=== PATIENT | male | born 1975 | race Caucasian/White ===

== ENCOUNTER 2018-07-24 10:13 | Emergency (ER) | payer SELFPAY ==
[2018-07-24 11:24] VITALS: BP 120/75
--- NOTE | 2018-07-24 11:47 | UC ---
Shoulder Pain HPI - HPI Summary HPI Summary: patient has had shoulder pain for the past few months, the past 2 weeks it has become more severe, swelling along the shoulder and collar bone and the supraclavicular space. hard to let the arm hang, does not remember any trauma to shoulder - History of Current Complaint Chief Complaint: UCUpperExtremity Stated Complaint: LEFT SHOULDER INJURY Time Seen by Provider: 07/24/18 11:33 Hx Obtained From: Patient Onset/Duration: Gradual Onset, Still Present, Worse Since - 2wks Timing: Constant Severity Currently: Severe Pain Intensity: 7 Character: Throbbing, Spasmodic, Stiffness Associated Signs And Symptoms: Positive: Swelling, Weakness - Allergies/Home Medications Allergies/Adverse Reactions: Allergies Allergy/AdvReac Type Severity Reaction Status Date / Time atropine Allergy See Comment Verified 07/24/18 11:25 Home Medications: Home Medications Ibuprofen TAB* [Motrin TAB* 800 MG] 800 mg PO Q6H 07/24/18 [History Confirmed ] PMH/Surg Hx/FS Hx/Imm Hx Previously Healthy: Yes - Surgical History Surgical History: Yes Surgery Procedure, Year, and Place: eye surgery as a child - Family History Known Family History: Positive: Hypertension - Social History Alcohol Use: Weekly Substance Use Type: None Smoking Status (MU): Heavy Every Day Tobacco Smoker Amount Used/How Often: 1 ppd Length of Time of Smoking/Using Tobacco: 25 Have You Smoked in the Last Year: Yes Review of Systems All Other Systems Reviewed And Are Negative: Yes Constitutional: Positive: Negative Skin: Positive: Negative Eyes: Positive: Negative ENT: Positive: Negative Respiratory: Positive: Negative Cardiovascular: Positive: Negative Gastrointestinal: Positive: Negative Genitourinary: Positive: Negative Motor: Positive: Negative Neurovascular: Positive: Negative Musculoskeletal: Positive: Arthralgia, Decreased ROM, Edema, Myalgia Neurological: Positive: Negative Psychological: Positive: Negative Is Patient Immunocompromised?: No Physical Exam Triage Information Reviewed: Yes Appearance: Well-Appearing, Well-Nourished, Pain Distress Vital Signs: Initial Vital Signs Temp 98.6 F 07/24/18 11:12 Pulse 56 07/24/18 11:12 Resp 18 07/24/18 11:12 BP 120/75 07/24/18 11:12 Pulse Ox 98 07/24/18 11:12 Vital Signs Reviewed: Yes Eye Exam: Normal ENT Exam: Normal Dental Exam: Normal Neck exam: Normal Respiratory Exam: Normal Cardiovascular Exam: Normal Abdominal Exam: Normal Bowel Sounds: Positive: Present Musculoskeletal: Positive: Strength Intact, ROM Limited @ - in flx, ext, rotation and abd, Edema @ - in the supraclavicular fossa, left Neurological Exam: Normal Psychological Exam: Normal Skin Exam: Normal Shoulder Course/Dx - Course Course Of Treatment: hx obtained, exam performed ,meds reviewed, xray obtained. sling and NSAIDS given, referred to ortho. - Differential Dx/Diagnosis Differential Diagnosis/HQI/PQRI: Arthritis, Bursitis, Rotator Cuff Injury, Sprain, Strain Provider Diagnosis: Shoulder pain Discharge - Sign-Out/Discharge Documenting (check all that apply): Patient Departure All imaging exams completed and their final reports reviewed: Yes - Discharge Plan Condition: Stable Disposition: HOME Prescriptions: Meloxicam [Mobic] 7.5 mg PO BID #60 tablet Patient Education Materials: Shoulder Pain (ED) Forms: *Work Release Referrals: Chastity IGNACIO,Lane Kamara [Primary Care Provider] - Thomas Laboy MD [Medical Doctor] - Additional Instructions: 1. use the sling for the next week for resting the joint. 2. take the meloxicam twice a day for the next month. 3. Follow up with orthopedics, [facility] Dis[facility] and Condition Condition: STABLE Disposition: Home - Attestation Statements Provider Attestation: I was available for consult. This patient was seen by the DOE. The patient was not presented to, seen by, or examined by me. -Michael
== END 2018-07-24 12:30 | disposition home or self-care (01) ==
LOC: UCCORT 10:13
DX: M25.512 Pain in left shoulder (principal); F17.210 Nicotine dependence, cigarettes, uncomplicated; Z88.8 Allergy status to other drugs, medicaments and biological substances
CPT/HCPCS: 99203; G0463